=== PATIENT | female | born 1995 | race Caucasian/White ===

== ENCOUNTER 2018-02-11 16:56 | Observation (INO) | payer OTHER ==
[~2018-02-11] VITALS: Ht 175.3 cm; Wt 70.5 kg
[2018-02-11 17:30] LABS: COLLECTION METHOD CLEAN CATCH
[2018-02-11 17:37] LABS: MUCOUS Present /lpf; PH 5 (5-8); URINE APPEARANCE Hazy; URINE BACTERIA Rare /hpf; URINE BILIRUBIN Negative (NEGATIVE); URINE BLOOD Negative (NEGATIVE); URINE COLOR Yellow; URINE GLUCOSE Negative (NEGATIVE); URINE KETONE 2+ (NEGATIVE); URINE LEUKOCYTE ESTERASE Negative (NEGATIVE); URINE NITRATE Negative (NEGATIVE); URINE PROTEIN(semi-quant) 1+ (NEGATIVE); URINE RBC 0-2 /hpf; URINE UROBILINOGEN Negative (NEGATIVE)
[2018-02-11 18:25] LABS: BASO % 0.2 % (0.0-2.0); EOS # 0.1 (0.0-0.7); EOS % 0.5 % (0-4.0); GRAN % 78.8 % (42.2-75.2); HEMOGLOBIN 11.5 g/dl (12.5-16.0); LYMPH # 1.3 (1.2-3.4); LYMPH % 10.1 % (20.0-51.0); MEAN CELL VOLUME 78 fl (80.0-100.0); MEAN CORPUSCULAR HEMOGLOBIN 25 pg (27.0-31.0); MEAN CORPUSCULAR HGB CONC 32 g/dl (33.0-37.0); MEAN PLATELET VOLUME 10.2 fl (7.4-10.4); MONO # 1.3 (0.1-0.6); MONO % 10.1 % (1.7-9.3); PLATELET COUNT 258 K/mm3 (130-400); RED BLOOD COUNT 4.68 M/mm3 (4.10-5.30); REDCELL DISTRIBUTION WIDTH-CV 16.5 % (11.5-14.5)
[2018-02-11 18:27] LABS: HEMATOCRIT 36.5 % (37.0-47.0)
[2018-02-11 18:43] LABS: ALBUMIN 4.1 gm/dL (3.5-5.0); BILIRUBIN,TOTAL 0.6 mg/dL (0.0-1.0); C-REACTIVE PROTEIN 5.2 mg/dL (0.0-0.9); CALCIUM 8.8 mg/dL (8.4-10.2); CREATININE, serum 0.55 mg/dL (0.52-1.25); POTASSIUM 3.3 mmol/L (3.4-5.0); TOTAL PROTEIN 7.6 gm/dL (6.4-8.2)
[2018-02-11 23:05] VITALS: BP 118/64; PULSE 91; TEMP 99.1
[2018-02-11 23:20] VITALS: BP 111/64; PULSE 102
[2018-02-11 23:35] VITALS: BP 123/61; PULSE 100
[2018-02-11 23:50] VITALS: BP 121/64; PULSE 92
[2018-02-12] VITALS (7 sets, daily range): BP systolic 90–115; BP diastolic 52–69; PULSE 72–116; TEMP 97.6–100.3
[2018-02-12] MEDS ORDERED: ROXICODONE 55 MG/TAB PO (10:28)
[2018-02-12] MEDS ORDERED: COLACE 100100 MG/CAP PO (10:29)
[2018-02-12] MEDS ORDERED: TYLENOL 500MG500 MG PO (10:29)
== END 2018-02-12 11:58 | disposition home or self-care (01) ==
LOC: COL.ER 16:56 → SURG 21:12
PROVIDERS: Nurse Practitioner
DX: O99.611 Diseases of the digestive system complicating pregnancy, first trimester (principal); K35.80 Unspecified acute appendicitis
CPT/HCPCS: J0694; J1100; J1170; J2270; J2405; J2550; J2704; J2710; J3010; J7030; J7120